=== PATIENT | female | born 1980 | race Two or more races ===

== ENCOUNTER → 2022-07-01 08:00 | Outpatient (CLI) | payer OTHER | END | disposition home or self-care (01) | LOC: LAB 08:00 → ADM 15:30 → EDSTATUS 07-04 15:30 → AMB-ENDOS 07-04 15:30 | PROVIDERS: ATTEND Surgery | DX: R10.13 Epigastric pain (principal); Z20.828 Contact with and (suspected) exposure to other viral communicable diseases ==